=== PATIENT | male | born 1955 | race Caucasian/White ===

== ENCOUNTER 2016-12-13 12:24 | Inpatient (IN) | payer OTHER, MEDICAID ==
[~2016-12-13] VITALS: Ht 167.6 cm; Wt 83.0 kg
[2016-12-13 12:24] VITALS: BP_SYST 111
[2016-12-13] MEDS ORDERED: methylPREDNISolone SOD SUCC/PF 62.5 MG/ML VIAL IVP ONE (12:45)
[2016-12-13] MEDS ORDERED: IPRATROPIUM BROM 0.5 MG/2.5 ML VIAL.NEB (ATROVENT) INH ONE (12:45)
[2016-12-13] MEDS ORDERED: ALBUTEROL SULFATE 0.083% 2.5 MG/3 ML VIAL.NEB INH ONE (12:45)
[2016-12-13] MEDS ORDERED: KETOROLAC TROMETHAMINE 30 MG VIAL IVP ONE (13:00)
[2016-12-13 13:24] LABS: CALCIUM 9.3 mg/dL (8.4-11.0); CREATININE 0.72 mg/dL (0.55-1.30); POTASSIUM 3.7 mmol/L (3.5-5.1)
[2016-12-13 13:26] LABS: BASOPHILS % (AUTO) 0.4 % (0.0-2.0); EOSINOPHILS % (AUTO) 0.7 % (0.0-4.0); HEMATOCRIT 38.8 % (36-54); HEMOGLOBIN 13.4 g/dL (14.0-18.0); LYMPHOCYTES # (AUTO) 1.1 K/uL (1.0-5.5); LYMPHOCYTES % (AUTO) 21.1 % (20.5-51.5); MEAN CORPUSCULAR HEMOGLOBIN 32 pg (27-31); MEAN CORPUSCULAR HGB CONC 35 % (32-36); MEAN CORPUSCULAR VOLUME 91 fL (79.0-98.0); MONOCYTES # (AUTO) 0.8 K/uL (0.0-1.0); MONOCYTES % (AUTO) 15.7 % (1.7-9.3); NEUTROPHILS # (AUTO) 3.1 K/uL (1.8-7.7); NEUTROPHILS % (AUTO) 62.1 % (40.0-70.0); PLATELET COUNT (AUTO) 182 K/uL (130-430); RED BLOOD CELL COUNT(AUTO) 4.26 MIL/uL (4.2-6.2)
[2016-12-13 13:29] LABS: TOTAL BILIRUBIN 0.5 mg/dL (0.0-1.0)
[2016-12-13] MEDS ORDERED: DOXY100T2 PO (14:31)
[2016-12-13] MEDS ORDERED: ALBU8.5H8 INH (14:31)
[2016-12-13] MEDS ORDERED: HYDR-4100 PO (14:31)
[2016-12-13] MEDS ORDERED: ROFL500T PO (14:31)
[2016-12-13] MEDS ORDERED: LIP20 PO (14:31)
[2016-12-13] MEDS ORDERED: HYDR-3698 PO (14:31)
[2016-12-13] MEDS ORDERED: HYDC2.5% TP (14:31)
[2016-12-13] MEDS ORDERED: MORP15TA60 PO (14:31)
[2016-12-13] MEDS ORDERED: GABA-531 PO (14:31)
[2016-12-13] MEDS ORDERED: DICL75TA5 PO (14:31)
[2016-12-13] MEDS ORDERED: TRAZ150T77 PO (14:31)
[2016-12-13] MEDS ORDERED: SERT-131 PO (14:31)
[2016-12-13 15:18] VITALS: BP_SYST 114
[2016-12-13] MEDS ORDERED: FLU VACC QS 2017-18(36MOS+)/PF 0.5 ML/SYR SYRINGE I.M. PRN (16:30)
[2016-12-13] MEDS ORDERED: ACETAMINOPHEN 325 MG TABLET PO PRN (19:00)
[2016-12-13] MEDS ORDERED: LORazepam 1 MG TABLET PO PRN (19:00)
[2016-12-13] MEDS ORDERED: MORPHINE 2 MG/ML INJ. SYRINGE IVP ONE (19:00)
[2016-12-13 19:30] VITALS: BP_SYST 123
[2016-12-13] MEDS ORDERED: IPRATROPIUM/ALBUTEROL SULFATE 3 ML AMPUL.NEB ONE (20:40)
[2016-12-13] MEDS: DICLOFENAC SODIUM 25 MG TABLET.DR PO SCH (20:53)
[2016-12-13] MEDS: ATORVASTATIN 20 MG TABLET PO SCH (20:53)
[2016-12-13] MEDS: MORPHINE SULFATE 15 MG TABLET.SA PO SCH (20:53)
[2016-12-13] MEDS: traZODone HCL 50 MG TABLET (DESYREL) PO SCH (20:54)
[2016-12-13] MEDS ORDERED: HYDROcodone/ACETAMIN 10-325 MG TAB PO SCH (22:00)
[2016-12-13] MEDS: methylPREDNISolone SOD SUCC 40 MG/ML VIAL IVP SCH (22:52)
[2016-12-13 23:01] VITALS: BP_SYST 123
[2016-12-14 00:04] VITALS: BP_SYST 94
[2016-12-14 04:02] VITALS: BP_SYST 102
[2016-12-14] MEDS: methylPREDNISolone SOD SUCC 40 MG/ML VIAL IVP SCH ×3 (05:21→22:45)
[2016-12-14 06:39] LABS: ANION GAP 8 (5-15); BASOPHILS % (AUTO) 0.4 % (0.0-2.0); CALCIUM 9.1 mg/dL (8.4-11.0); CHLORIDE 104 mmol/L (98-107); CREATININE 0.71 mg/dL (0.55-1.30); EOSINOPHILS % (AUTO) 0.1 % (0.0-4.0); GLUCOSE 152 mg/dL (70-99); HEMATOCRIT 37.2 % (36-54); HEMOGLOBIN 12.8 g/dL (14.0-18.0); LYMPHOCYTES # (AUTO) 0.4 K/uL (1.0-5.5); LYMPHOCYTES % (AUTO) 6.7 % (20.5-51.5); MEAN CORPUSCULAR HEMOGLOBIN 31 pg (27-31); MEAN CORPUSCULAR HGB CONC 34 % (32-36); MEAN CORPUSCULAR VOLUME 91 fL (79.0-98.0); MONOCYTES # (AUTO) 0.1 K/uL (0.0-1.0); NEUTROPHILS # (AUTO) 5.5 K/uL (1.8-7.7); NEUTROPHILS % (AUTO) 91.8 % (40.0-70.0); PLATELET COUNT (AUTO) 177 K/uL (130-430); POTASSIUM 4.2 mmol/L (3.5-5.1); RED BLOOD CELL COUNT(AUTO) 4.09 MIL/uL (4.2-6.2); RED CELL DISTRIBUTION WIDTH 14.1 % (9.0-15.0); SODIUM SERUM 141 mmol/L (136-145); UREA NITROGEN, BLOOD 17 mg/dL (8-21)
[2016-12-14 07:26] LABS: ALANINE AMINOTRANSFERASE 24 U/L (12-78); ALBUMIN 4.1 g/dL (3.4-4.8); ASPARTATE AMINOTRANSFERASE 20 U/L (10-37); THYROID STIMULATING HORMONE 0.21 uIu/mL (0.36-3.74); TOTAL BILIRUBIN 0.5 mg/dL (0.0-1.0)
[2016-12-14 07:48] LABS: GFR AFRICAN AMERICAN 145 mL/min (>90)
[2016-12-14 08:28] VITALS: BP_SYST 100
[2016-12-14] MEDS: MORPHINE SULFATE 15 MG TABLET.SA PO SCH ×2 (08:50→20:47)
[2016-12-14] MEDS: SERTRALINE HCL 50 MG TABLET PO SCH (08:50)
[2016-12-14] MEDS: PANTOPRAZOLE SODIUM 40 MG TAB PO SCH (08:50)
[2016-12-14] MEDS: DICLOFENAC SODIUM 25 MG TABLET.DR PO SCH ×2 (10:09→20:47)
[2016-12-14] MEDS: HYDROcodone/ACETAMIN 10-325 MG TAB PO PRN (11:38)
[2016-12-14 12:00] VITALS: BP_SYST 120
[2016-12-14] MEDS ORDERED: INSULIN ASPART 100 UNITS/ML, 10 ML VIAL (NovoLOG) SUBCUT PRN (14:00)
[2016-12-14] MEDS ORDERED: ALBUTEROL SULFATE 0.083% 2.5 MG/3 ML VIAL.NEB INH PRN (15:00)
[2016-12-14] MEDS ORDERED: IPRATROPIUM BROM 0.5 MG/2.5 ML VIAL.NEB (ATROVENT) INH PRN (15:00)
[2016-12-14] MEDS: AZITHROMYCIN 500 MG in NS 250 ML IV SCH (16:30)
[2016-12-14 17:25] VITALS: BP_SYST 116
[2016-12-14] MEDS: cefTRIAXone 1 GM in D5W 50 ML IV SCH (17:48)
[2016-12-14] MEDS: IPRATROPIUM/ALBUTEROL SULFATE 3 ML AMPUL.NEB INH SCH (20:15)
[2016-12-14] MEDS: ATORVASTATIN 20 MG TABLET PO SCH (20:46)
[2016-12-14] MEDS: traZODone HCL 50 MG TABLET (DESYREL) PO SCH (20:47)
[2016-12-14 23:47] VITALS: BP_SYST 106
[2016-12-15] MEDS: IPRATROPIUM/ALBUTEROL SULFATE 3 ML AMPUL.NEB INH SCH ×4 (01:00→19:56)
[2016-12-15] MEDS: methylPREDNISolone SOD SUCC 40 MG/ML VIAL IVP SCH ×3 (05:20→21:22)
[2016-12-15 05:34] VITALS: BP_SYST 100
[2016-12-15] MEDS: HYDROcodone/ACETAMIN 10-325 MG TAB PO PRN ×2 (06:32→14:13)
[2016-12-15 08:00] VITALS: BP_SYST 121
[2016-12-15] MEDS: PANTOPRAZOLE SODIUM 40 MG TAB PO SCH (08:16)
[2016-12-15] MEDS: DICLOFENAC SODIUM 25 MG TABLET.DR PO SCH ×2 (08:16→21:15)
[2016-12-15] MEDS: MORPHINE SULFATE 15 MG TABLET.SA PO SCH ×2 (08:16→21:12)
[2016-12-15] MEDS: SERTRALINE HCL 50 MG TABLET PO SCH (08:17)
[2016-12-15] MEDS ORDERED: COMMUNICATION ORDER XX ONE (10:45)
[2016-12-15 11:51] VITALS: BP_SYST 103
[2016-12-15] MEDS: GABAPENTIN 300 MG CAPSULE PO PRN (13:20)
[2016-12-15] MEDS: AZITHROMYCIN 500 MG in NS 250 ML IV SCH (15:13)
[2016-12-15 16:03] VITALS: BP_SYST 116
[2016-12-15] MEDS ORDERED: MORPHINE 4 MG/ML INJ. SYRINGE IVP ONE (16:45)
[2016-12-15] MEDS: cefTRIAXone 1 GM in D5W 50 ML IV SCH (17:07)
[2016-12-15 19:30] VITALS: BP_SYST 124
[2016-12-15] MEDS: traZODone HCL 50 MG TABLET (DESYREL) PO SCH (21:12)
[2016-12-15] MEDS: ATORVASTATIN 20 MG TABLET PO SCH (21:12)
[2016-12-15] MEDS: TRIAMCINOLONE 0.1% TP SCH (21:13)
[2016-12-16] MEDS: IPRATROPIUM/ALBUTEROL SULFATE 3 ML AMPUL.NEB INH SCH ×3 (01:00→13:27)
[2016-12-16] MEDS: HYDROcodone/ACETAMIN 10-325 MG TAB PO PRN (04:00)
[2016-12-16 04:54] VITALS: BP_SYST 117
[2016-12-16] MEDS: methylPREDNISolone SOD SUCC 40 MG/ML VIAL IVP SCH (05:32)
[2016-12-16 08:00] VITALS: BP_SYST 132
[2016-12-16] MEDS: PANTOPRAZOLE SODIUM 40 MG TAB PO SCH (09:23)
[2016-12-16] MEDS: MORPHINE SULFATE 15 MG TABLET.SA PO SCH (09:23)
[2016-12-16] MEDS: SERTRALINE HCL 50 MG TABLET PO SCH (09:23)
[2016-12-16] MEDS: GABAPENTIN 300 MG CAPSULE PO PRN (09:25)
[2016-12-16] MEDS: TRIAMCINOLONE 0.1% TP SCH (09:31)
[2016-12-16] MEDS: DICLOFENAC SODIUM 25 MG TABLET.DR PO SCH (09:46)
[2016-12-16 12:00] VITALS: BP_SYST 130
[2016-12-16] MEDS ORDERED: AMOX-426 PO (12:45)
[2016-12-16] MEDS ORDERED: METH4TAB3 PO (12:46)
[2016-12-16 13:56] VITALS: BP_SYST 132
[2016-12-16 14:14] VITALS: BP_SYST 117
[2016-12-16] MEDS ORDERED: methylPREDNISolone SOD SUCC 40 MG/ML VIAL IVP SCH (18:00)
== END 2016-12-16 14:25 | disposition home or self-care (01) | DRG 191 ==
LOC: SED 12:24 → STU 14:35 → SMU 12-15 12:00
PROVIDERS: ADMIT Internal Medicine; ATTEND Internal Medicine
DX: J44.1 Chronic obstructive pulmonary disease with (acute) exacerbation (principal); J96.11 Chronic respiratory failure with hypoxia; Z99.81 Dependence on supplemental oxygen; G89.4 Chronic pain syndrome; E78.5 Hyperlipidemia, unspecified; F32.9 Major depressive disorder, single episode, unspecified; R91.1 Solitary pulmonary nodule; Z79.899 Other long term (current) drug therapy; Z87.891 Personal history of nicotine dependence; Z80.0 Family history of malignant neoplasm of digestive organs
CPT/HCPCS: 36415; 36600; 70450-TC; 71010; 71250-TC; 80053; 82803-TC; 82962; 83880; 84439; 84443-TC; 84480; 84484; 85025; 93005; 94640; 94760; 96374; 96375; 97116-GP; 97530-GP; 99285; J0456; J0696; J1030; J1885; J2270; J2930; J7050; J7060